=== PATIENT | male | born 1990 ===

== ENCOUNTER 2018-03-11 10:50 | Emergency (ER) | payer SELFPAY ==
[2018-03-11 11:00] VITALS: BMI 41.4
--- NOTE | 2018-03-11 11:22 | ED PDOC ---
HPI: Psych/Substance Abuse Time Seen by Provider: 03/11/18 11:11 History Per: Patient Onset/Duration Of Symptoms: Unknown Suicide/Self Injury Attempted (Context): None Modifying Factor(s): None Additional Complaint(s): Referred from [facility] for eval due to noncompliance with meds. Has been depressed but denies SI/HI. Has also been noncompliant with DM and antihypertensive meds. Past Medical History Vital Signs: Last Vital Signs Temp 98.3 F 03/11/18 11:01 Pulse 104 H 03/11/18 11:01 Resp 20 03/11/18 11:01 BP 127/86 03/11/18 11:01 Pulse Ox 96 03/11/18 11:01 - Medical History PMH: Anxiety, Diabetes, HTN Denies: Hepatitis, HIV, Chronic Kidney Disease, Seizures, Sexually Transmitted Disease - Family History Family History: States: Unknown Family Hx - Immunization History Hx Tetanus Toxoid Vaccination: No Hx Influenza Vaccination: Yes Hx Pneumococcal Vaccination: No - Home Medications Home Medications: Ambulatory Orders Medication Instructions Recorded Benztropine [Cogentin] 1 mg PO BID #30 tab 09/30/15 Gabapentin [Neurontin] 300 mg PO TID #30 cap 09/30/15 Haloperidol [Haldol] 10 mg PO BID #30 tab 09/30/15 [place] Carbonate [[place] 600 mg PO BID #30 cap 09/30/15 Carbonate 300MG] Sertraline [Zoloft] 50 mg PO DAILY #30 tab 09/30/15 traZODone [Desyrel] 100 mg PO HS #30 tab 09/30/15 - Allergies Allergies/Adverse Reactions: Allergies Allergy/AdvReac Type Severity Reaction Status Date / Time No Known Allergies Allergy Verified 03/11/18 11:19 Review of Systems ROS Statement: Except As Marked, All Systems Reviewed And Found Negative Psych: Positive for: Depression. Negative for: Suicidal ideation Physical Exam - Reviewed Nursing Documentation Reviewed: Yes Vital Signs Reviewed: Yes - Physical Exam Appears: Positive for: Well, Non-toxic, No Acute Distress Head Exam: Positive for: ATRAUMATIC, NORMAL INSPECTION, NORMOCEPHALIC Skin: Positive for: Normal Color, Warm, DRY Eye Exam: Positive for: EOMI, Normal appearance, PERRL ENT: Positive for: Normal ENT Inspection Neck: Positive for: Normal, Painless ROM Cardiovascular/Chest: Positive for: Regular Rate, Rhythm Respiratory: Positive for: CNT, Normal Breath Sounds Gastrointestinal/Abdominal: Positive for: Normal Exam, Soft Back: Positive for: Normal Inspection Extremity: Positive for: Normal ROM Neurologic/Psych: Positive for: Alert, Oriented - Laboratory Results Result Diagrams: 03/11/18 11:52 03/11/18 11:52 - ECG O2 Sat by Pulse Oximetry: 96 Medical Decision Making Medical Decision Making: Wishes to go home. Repeat accucheck 223. Denies SI/HI and does not wish to be seen by crisis. Disposition - Clinical Impression Clinical Impression: Diabetes - Patient ED Disposition Is Patient to be Admitted: No Counseled Patient/Family Regarding: Studies Performed, Diagnosis, Need For Followup, Rx Given - Disposition Referrals: [facility] [place] [Outside] Disposition: Routine/Home Disposition Time: 14:36 Condition: FAIR Instructions: Type 2 Diabetes
[2018-03-11 11:59] LABS: BASO # 0.1 K/uL (0.0-0.2); BASO % 0.9 % (0.0-2.0); EOS # 0.2 K/uL (0.0-0.7); EOS % 1.2 % (0.0-4.0); HEMOGLOBIN 14.9 g/dL (12.0-18.0); LYMPH % 20.5 % (20.0-40.0); MEAN CELL VOLUME 88.9 fl (80.0-94.0); MEAN CORPUSCULAR HEMOGLOBIN 30.3 pg (27.0-31.0); MEAN CORPUSCULAR HGB CONC 34.1 g/dL (33.0-37.0); MEAN PLATELET VOLUME 8.1 fl (7.2-11.7); MONO # 1.4 K/uL (0.0-0.8); MONO % 9.4 % (0.0-10.0); NEUT # 9.9 K/uL (1.8-7.0); NRBC % 0.1 % (0.0-0.0); RBC 4.92 Mil/uL (4.40-5.90); RED CELL DISTRIBUTION WIDTH 13.7 % (11.5-14.5); WHITE BLOOD COUNT 14.5 K/uL (4.8-10.8)
[2018-03-11] MEDS ORDERED: Insulin Regular 100 units/ml SC STA (12:03)
[2018-03-11 12:08] LABS: BARBITURATES, UR NEGATIVE (NEGATIVE); BENZODIAZEPINES, UR NEGATIVE (NEGATIVE); OPIATES, UR NEGATIVE (NEGATIVE); PHENCYCLIDINE, UR NEGATIVE (NEGATIVE)
[2018-03-11 12:19] LABS: ALB/GLOB RATIO 1.1 (1.0-2.1); ALBUMIN 4.3 g/dL (3.5-5.0); ALT/SGPT 61 U/L (21-72); AST/SGOT 54 U/L (17-59); BLOOD UREA NITROGEN 6 mg/dl (9-20); CALCIUM 9.6 mg/dL (8.4-10.2); GFR AFRICAN-AMERICAN > 60; GFR NON-AFRICAN AMERICAN > 60
[2018-03-11] MEDS ORDERED: Sodium Chloride 0.9% 1,000 ML IV STA (12:23)
[2018-03-11 13:05] VITALS: RESP 16
[2018-03-11] MEDS ORDERED: Insulin Regular 100 units/ml ONE (13:08)
--- NOTE | 2018-03-11 13:23 | RAD ---
Date of service: 03/11/2018 HISTORY: DM COMPARISON: 03/01/2016 TECHNIQUE: Chest PA and lateral FINDINGS: LUNGS: No active pulmonary disease. PLEURA: No significant pleural effusion identified. No pneumothorax apparent. CARDIOVASCULAR: Normal. OSSEOUS STRUCTURES: No significant abnormalities. VISUALIZED UPPER ABDOMEN: Normal. OTHER FINDINGS: None. IMPRESSION: No active disease. No significant interval change compared to the prior examination(s).
[2018-03-11 14:15] VITALS: BP 136/82; PULSE 87; TEMP 98.7
[2018-03-11 14:36] VITALS: O2SAT 96
== END 2018-03-11 14:48 | disposition home or self-care (01) ==
LOC: H.ER 10:50
DX: E11.9 Type 2 diabetes mellitus without complications (principal); Z91.19 Patient's noncompliance with other medical treatment and regimen; Z91.14 Patient's other noncompliance with medication regimen; F32.9 Major depressive disorder, single episode, unspecified; F41.9 Anxiety disorder, unspecified; I10 Essential (primary) hypertension
CPT/HCPCS: 71046; 80053; 80320; 80324; 80345; 80346; 80349; 80353; 80358; 80361; 82948; 83992; 85025; 96372; 99282; J7030

== ENCOUNTER 2018-07-09 16:00 | Inpatient (IN) | payer MEDICAID, OTHER ==
[2018-07-09 16:00] VITALS: BMI 41.4
--- NOTE | 2018-07-09 16:55 | ED PDOC ---
HPI: Psych/Substance Abuse Time Seen by Provider: 07/09/18 16:41 Chief Complaint (Nursing): Psychiatric Evaluation Chief Complaint (Provider): Suicidal ideation Additional Complaint(s): Pt sent from [facility] for suicidal ideation. Pt has been noncompliant with Gabapentin and [place] X 20 days. Denies homicidal ideation. Past Medical History Reviewed: Nursing Documentation, Vital Signs Vital Signs: Last Vital Signs Temp 97.7 F 07/09/18 16:02 Pulse 96 H 07/09/18 16:02 Resp 20 07/09/18 16:02 BP 131/61 07/09/18 16:02 Pulse Ox 98 07/09/18 16:02 - Medical History PMH: Anxiety, Diabetes, HTN, Schizophrenia Denies: Hepatitis, HIV, Chronic Kidney Disease, Seizures, Sexually Transmitted Disease - Family History Family History: States: Unknown Family Hx - Social History Current smoker - smoking cessation education provided: No Alcohol: None Drugs: Denies - Immunization History Hx Tetanus Toxoid Vaccination: No Hx Influenza Vaccination: Yes Hx Pneumococcal Vaccination: No - Home Medications Home Medications: Ambulatory Orders Medication Instructions Recorded Atorvastatin [Lipitor] 20 mg PO HS #30 tab 07/14/18 Gabapentin [Neurontin] 100 mg PO TID #90 cap 07/14/18 MetFORMIN [glucoPHAGE] 1,000 mg PO BIDWM #60 tab 07/14/18 Sertraline [Zoloft] 50 mg PO DAILY #30 tab 07/14/18 risperiDONE [RisperDAL Tab] 1 mg PO HS #30 tab 07/14/18 traZODone [Desyrel] 100 mg PO HS #30 tab 07/14/18 - Allergies Allergies/Adverse Reactions: Allergies Allergy/AdvReac Type Severity Reaction Status Date / Time No Known Allergies Allergy Verified 07/09/18 16:01 Review of Systems Psych: Positive for: Suicidal ideation. 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 Negative for: Motor/Sensory Deficits - Laboratory Results Result Diagrams: 07/09/18 19:30 07/09/18 19:30 - ECG O2 Sat by Pulse Oximetry: 98 Medical Decision Making Medical Decision Makin yo male with suicidal ideation. - Crisis evaluation Disposition - Clinical Impression Clinical Impression: Schizoaffective disorder - Disposition Disposition: Transfer of Care Disposition Time: 20:00 Condition: STABLE Patient Signed Over To: Shade Lira
[2018-07-09 19:53] LABS: URINE BILIRUBIN NEGATIVE (NEGATIVE); URINE BLOOD NEGATIVE (NEGATIVE); URINE CLARITY CLEAR (Clear); URINE COLOR STRAW (YELLOW); URINE GLUCOSE (UA) >=500 mg/dL (Normal); URINE LEUKOCYTE ESTERASE NEG Leu/uL (Negative); URINE PROTEIN NEGATIVE (NEGATIVE); URINE UROBILINOGEN 0.2-1.0 mg/dL (0.2-1.0)
[2018-07-09 19:55] LABS: BASO # 0.1 K/uL (0.0-0.2); EOS # 0.1 K/uL (0.0-0.7); EOS % 0.8 % (0.0-4.0); HEMOGLOBIN 14.6 g/dL (12.0-18.0); LYMPH # 3.2 K/uL (1.0-4.3); LYMPH % 23.8 % (20.0-40.0); MEAN CELL VOLUME 87.9 fl (80.0-94.0); MEAN CORPUSCULAR HEMOGLOBIN 28.9 pg (27.0-31.0); MEAN CORPUSCULAR HGB CONC 32.9 g/dL (33.0-37.0); MEAN PLATELET VOLUME 7.5 fl (7.2-11.7); MONO # 1.2 K/uL (0.0-0.8); MONO % 8.6 % (0.0-10.0); NEUT # 8.8 K/uL (1.8-7.0); NEUT % 65.8 % (50.0-75.0); NRBC % 0.1 % (0.0-0.0); RBC 5.06 Mil/uL (4.40-5.90); RED CELL DISTRIBUTION WIDTH 13.2 % (11.5-14.5); WHITE BLOOD COUNT 13.4 K/uL (4.8-10.8)
[2018-07-09 20:06] LABS: ALB/GLOB RATIO 1.2 (1.0-2.1); ALBUMIN 4.4 g/dL (3.5-5.0); ALT/SGPT 60 U/L (21-72); AST/SGOT 34 U/L (17-59); BLOOD UREA NITROGEN 13 mg/dl (9-20); CALCIUM 9.7 mg/dL (8.4-10.2); GFR NON-AFRICAN AMERICAN > 60
[2018-07-09 20:07] LABS: ACETAMINOPHEN < 10.0 ug/ml (10.0-30.0); BARBITURATES, UR NEGATIVE (NEGATIVE); BENZODIAZEPINES, UR NEGATIVE (NEGATIVE); OPIATES, UR NEGATIVE (NEGATIVE); PHENCYCLIDINE, UR NEGATIVE (NEGATIVE); SALICYLATE < 1.0 mg/dl
[2018-07-09] MEDS ORDERED: DiphenhydrAMINE 50 mg/ml Inj IM PRN (22:18)
[2018-07-09] MEDS ORDERED: Magnesium Hydroxide Susp 30 ml UD PO PRN (22:18)
[2018-07-09] MEDS ORDERED: Alum-Mag Hydrox-Simethicone Susp (30 mL) PO PRN (22:18)
--- NOTE | 2018-07-09 22:25 | PCM.BM ---
<Amy Ceja - Last Filed: 07/09/18 22:23> Treatment Plan Problems - Problems identified on initial assessmt Medication nonadherence Date Initiated: 07/09/18 Time Initiated: 22:24 Assessment reference: NA Status: Active Self care deficit Date Initiated: 07/09/18 Time Initiated: 22:24 Assessment reference: NA Status: Active Auditory Hallucination Date Initiated: 07/09/18 Time Initiated: 22:25 Assessment reference: NA Status: Active Ineffective family coping Date Initiated: 07/09/18 Time Initiated: 22:25 Assessment reference: NA Status: Active Treatment assets and liabiliti Patient Assests: cooperative, resourceful, ADL independent, negotiates basic needs Patient Liabilities: substance abuse, medical problems - Milieu Protocol Maintain good personal hygiene: every shift Encourage regular showers, every shift Remind patient to perform daily oral care, every shift Assist patient to perform ADL's Conduct patient checks and document Observation sheet: Q15 minutes Maintain personal safety: every shift Educate patient to report safety concerns to staff, every shift Monitor environment for contraband/sharps Medication safety: Monitor for expected outcome, potential side effects: every shift, Assess barriers to learning: every shift, Assess readiness for medication education: every shift <Misael Esquivel - Last Filed: 07/13/18 18:28> Family Contact Family involvement: Famliy/SO not involved Family contact: Patient declines to allow family contact at present Family contact name: Pt refused. - Goals for Treatment Patient goals for treatment: Pt offered no goals for treatment and denied all acute psych complaints. Pt is currently comnnected to [facility]. Discharge/Continuing Care - Education Needs Education Needs: Patient Medication, Patient Diagnosis/Disease Process, Patient Coping Skills, Patient Community resources, Patient Aftercare Safety Plan - Discharge Discharge Criteria: Tolerates medication w/o severe side effects, Free of Suicidal thoughts, Free of agitation, Normal sleep pattern, Ability to care for self, Reduction of target symptoms Discharge to:: Home, With Family - Treatment Team Participation Patient/Family/SO Statement: 07/13/18 18:27 Pt seen in treatment team on 07/11/18. Pt denied all acute psychiatric complaints. Pt denied SI/HI and AVT hallucinations. Discussed with Family/SO: No Was Patient/Family/SO present at Treatment Team Meeting: Yes
--- NOTE | 2018-07-10 04:44 | ED PDOC ---
- Laboratory Results Result Diagrams: 07/09/18 19:30 07/09/18 19:30 - ECG O2 Sat by Pulse Oximetry: 100 Medical Decision Making Medical Decision MakinPM Patient endorsed to me by Dr. Rogers pending labs and xray, patient to be admitted to [facility] 9PM Patient has mild leukocytosis without signs of infection. CXR is unchanged from 2016. Non-emergent CT can be obtained as outpatient given no symptoms. Cleared medically for admission. Disposition - Clinical Impression Clinical Impression: Schizoaffective disorder - POA Present On Arrival: None - Disposition Disposition: Admitted as In-Patient Disposition Time: 21:00 Condition: FAIR
[2018-07-10] MEDS ORDERED: Influenza Vaccine (5 YR UP)/PF 60 MCG/0.5 ML SYR IM ONE (06:13)
[2018-07-10 07:36] LABS: T4 7.06 ug/dl (5.5-11.0)
--- NOTE | 2018-07-10 09:32 | CARD ---
APPROVED REPORT Date of service: 07/09/2018 EKG Measurement Heart [id number] <Conclusion> Normal sinus rhythm Minimal voltage criteria for LVH, may be normal variant Borderline ECG
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
--- NOTE | 2018-07-10 12:27 | RAD ---
Date of service: 07/09/2018 HISTORY: Medical clearance COMPARISON: 03/11/2018 FINDINGS: LUNGS: No active pulmonary disease. PLEURA: No significant pleural effusion identified, no pneumothorax apparent. CARDIOVASCULAR: No atherosclerotic calcification present No radiographic findings to suggest acute or significant cardiovascular disease. OSSEOUS STRUCTURES: No significant abnormalities. VISUALIZED UPPER ABDOMEN: Normal. OTHER FINDINGS: None. IMPRESSION: No active disease. No significant interval change compared to the prior examination(s). Concordant results with the preliminary interpretation rendered by the emergency department physician procedure.
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
[2018-07-10] MEDS: Insulin Lispro (humaLOG) 100 Units/ml Inj SC SCH (23:31)
[2018-07-11] MEDS: Insulin Lispro (humaLOG) 100 Units/ml Inj SC SCH ×4 (08:13→21:08)
--- NOTE | 2018-07-11 14:20 | PCM.PYCHPN ---
Psychiatric Progress Note - Psychiatric Progress Note Patient seen today, length of contact: PT EVALUATED DISCUSSED WITH TEAM CHART REVIEWED Patient Chief Complaint: I did not have my medicine and I was depressed Problems Identified/Issues Discussed: pt evaluated with treatment team, continues to present with depressed mood and affect, pt reported being non compliant with medication prior to admission also reported relapse on cocaine, motivational therapy provided in reference to the effect of cocaine on current mental status discussed gradual increase in the dose of zoloft, no reported side effects, encouraged pt to attend groups, pt denied any current suicidal or homicidal ideation denied perceptual disturbances Medical Problems: pt has hx of two hospitalizations, hx of non compliance with treatment DSM 5 Symptoms Update: major depression cocaine induced psychosis cocaine abuse Medication Change: No Medical Record Reviewed: Yes Mental Status Examination - Cognitive Function Orientation: Person, Place, Situation Memory: Intact Attention: WNL Concentration: Poor Association: WNL Fund of Knowledge: Poor Decription of patient's judgement and insights: poor insight and judgment - Mood Mood: Depressed, Anxious - Affect Affect: Constricted, Depressed - Speech Speech: Soft - Formal Thought Process Formal Thought Process: Hallucinations, Circumstantial - Suicidal Ideation Suicidal Ideation: No - Homicidal Ideation Homicidal Ideation: No Goal/Treatment Plan - Goal/Treatment Plan Need for Continued Stay: Severe depression anxiety, Discharge may exacerbated symptoms Progress Toward Problem(s) and Goals/Treatment Plan: zoloft 50mg daily risperidone 1mg qhs internal medicine consult motivational, group and supportyive therapy
[2018-07-12] MEDS: Insulin Lispro (humaLOG) 100 Units/ml Inj SC SCH ×4 (09:52→21:17)
--- NOTE | 2018-07-12 09:58 | PCM.PYCHPN ---
Psychiatric Progress Note - Psychiatric Progress Note Patient seen today, length of contact: Pt evaluated, case discussed w/ team, chart reviewed Patient Chief Complaint: Depression Problems Identified/Issues Discussed: Patient continues to report feeling depressed w/ intermittent feelings of hopelessness. NO AH/VH/SI/HI. No active ideation to harm self. No adverse effects to medications reported. He reports difficulty sleeping at night. Medication Change: No Medical Record Reviewed: Yes Consults ordered or reviewed: Medicine consult Mental Status Examination - Cognitive Function Orientation: Person, Place, Situation, Time Memory: Intact Attention: WNL Concentration: WNL Association: WNL Fund of Knowledge: [facility] Decription of patient's judgement and insights: Poor I/J - Mood Mood: Depressed, Anxious - Affect Affect: Constricted, Depressed - Speech Speech: Appropriate - Formal Thought Process Formal Thought Process: No Impairment Psychotic Thoughts and Behaviors: Denies acute AH/VH/paranoia - Suicidal Ideation Suicidal Ideation: No - Homicidal Ideation Homicidal Ideation: No Goal/Treatment Plan - Goal/Treatment Plan Need for Continued Stay: Severe depression anxiety, Discharge may exacerbated symptoms Progress Toward Problem(s) and Goals/Treatment Plan: Major Depressive Disorder; Cocaine Induced Psychosis; Cocaine Use Disorder -Continue current medications -Individual and group therapy -Psychoeducation -Disposition planning
[2018-07-13] MEDS: Insulin Lispro (humaLOG) 100 Units/ml Inj SC SCH ×4 (08:58→21:30)
--- NOTE | 2018-07-13 10:17 | PCM.PYCHPN ---
Psychiatric Progress Note - Psychiatric Progress Note Patient seen today, length of contact: Pt evaluated, case discussed w/ team, chart reviewed Patient Chief Complaint: Depression Problems Identified/Issues Discussed: Patient reports that his mood is improving. He feels less depressed. No active ideation to harm self. No adverse effects to medications reported. Medication Change: No Medical Record Reviewed: Yes Consults ordered or reviewed: Medicine consult Mental Status Examination - Cognitive Function Orientation: Person, Place, Situation, Time Memory: Intact Attention: WNL Concentration: WNL Association: WNL Fund of Knowledge: WN Decription of patient's judgement and insights: Improving I/J - Mood Mood: Depressed - Affect Affect: Constricted - Speech Speech: Appropriate - Formal Thought Process Formal Thought Process: No Impairment Psychotic Thoughts and Behaviors: Denies acute AH/VH/paranoia - Suicidal Ideation Suicidal Ideation: No - Homicidal Ideation Homicidal Ideation: No Goal/Treatment Plan - Goal/Treatment Plan Need for Continued Stay: Severe depression anxiety, Discharge may exacerbated symptoms Progress Toward Problem(s) and Goals/Treatment Plan: Major Depressive Disorder; Cocaine Induced Psychosis; Cocaine Use Disorder -Continue current medications -Individual and group therapy -Psychoeducation -Disposition planning
[2018-07-14] MEDS: Insulin Lispro (humaLOG) 100 Units/ml Inj SC SCH ×2 (09:22→11:41)
--- NOTE | 2018-07-14 09:50 | PCM.PYCHDC ---
Mental Status Examination - Mental Status Examination Orientation: Person, Place, Situation, Time Memory: Intact Mood: Neutral Affect: Broad Speech: Appropriate Attention: WNL Concentration: WNL Association: WNL Fund of Knowledge: WNL Formal Thought Process: No Impairment Description of patient's judgement and insight: Fair I/J Psychotic Thoughts and Behaviors: Denies acute AH/VH/paranoia Suicidal Ideation: No Current Homicidal Ideation?: No Discharge Summary - Discharge Note Reason for Hospitalization: As per initial HPI: pt is 27 ys old male with previous psychiatric diagnosis of schizoafeective disorder, cocaine and alcohol abuse, presented to ER with suicidal ideations, pt has not been compliant with medications or follow up started to feel increaingly depressed, also relapsed on cocaine , last use two weeks ago, pt started having command hallucinations to kill himself on the unit pt reported low energy low motivation, passive suicidal ideation without active plan on the unit denied current command hallucinations Laboratory Data: Abnormal Lab Results 07/13/18 07/13/18 07/13/18 12:21 16:41 21:22 POC Glucose (mg/dL) 158 H 233 H 228 H 07/14/18 06:55 POC Glucose (mg/dL) 175 H Consultations:: List each consultation separately and include: 1. Reason for request. 2. Findings. 3. Follow-up Consultations: Medicine consult Summary of Hospital Course include:: 1. Description of specific treatment plan utilized for patients during their course of treatmen. 2. Summarize the time- course for resolution of acute symptoms and/or regressed behaviors. 3. Describe issues identified and worked on during hospitalization. 4. Describe medication utilized. 5. Describe medical problems identified and treated. 6. Reassessment of suicide risk Summary of Hospital Course: Patient was admitted to the psychiatry unit. Individual and group therapy were provided. Patient was stabilized on Risperdal 1 mg PO HS, Zoloft 50 mg PO Daily and Trazodone 100 mg PO HS. He requested to be discharged from the hospital because his mood has improved, he no longer feels he needs acute inpatient hospitalization and he would like to attend his [facility] appointment. Psychoeducation provided on the dangers of substance abuse and compliance with treatment and medications. He denies depression/anxiety/AH/VH/paranoia/delusions/SI/HI. - Final Diagnosis (DSM 5) Condition upon Discharge: FAIR DSM 5: Schizoaffective Disorder vs Substance Induced Mood and Psychotic Disorder; Cocaine Use Disorder Disposition: HOME/ ROUTINE Follow-up Treatment Plan: Schizoaffective Disorder vs Substance Induced Mood and Psychotic Disorder; Cocaine Use Disorder Discharge with outpatient follow-up today at [facility] Prescriptions/Medication Reconciliation: Atorvastatin [Lipitor] 20 mg PO HS #30 tab Gabapentin [Neurontin] 100 mg PO TID #90 cap MetFORMIN [glucoPHAGE] 1,000 mg PO BIDWM #60 tab risperiDONE [RisperDAL Tab] 1 mg PO HS #30 tab Sertraline [Zoloft] 50 mg PO DAILY #30 tab traZODone [Desyrel] 100 mg PO HS #30 tab - Smoking Cessation Smoking Cessation Medication prescribed: No Reason for not providing: Not indicated - Antipsychotic Medications Pt discharged on 2 or more routine antipsychotic medications: No
[2018-07-14 10:09] VITALS: BP 130/79; PULSE 74; RESP 20; TEMP 97
[2018-07-14 16:01] VITALS: O2SAT 98
== END 2018-07-14 12:55 | disposition home or self-care (01) | DRG 750 ==
LOC: H.ER 16:00 → H.ERHOLD 19:59 → H.PSYCH 22:12
PROVIDERS: ADMIT Psychiatry & Neurology Psychiatry; ATTEND Psychiatry & Neurology Psychiatry
PROC: GZHZZZZ Group Psychotherapy (ICD-10-PCS; principal; 2018-07-09)
PROC: HZ57ZZZ Individual Psychotherapy for Substance Abuse Treatment, Motivational Enhancement (ICD-10-PCS; 2018-07-09)
PROC: HZ56ZZZ Individual Psychotherapy for Substance Abuse Treatment, Psychoeducation (ICD-10-PCS; 2018-07-09)
PROC: HZ59ZZZ Individual Psychotherapy for Substance Abuse Treatment, Supportive (ICD-10-PCS; 2018-07-09)
PROC: 3E02340 Introduction of Influenza Vaccine into Muscle, Percutaneous Approach (ICD-10-PCS; 2018-07-10)
DX: F25.9 Schizoaffective disorder, unspecified (principal); R45.851 Suicidal ideations; E11.9 Type 2 diabetes mellitus without complications; Z91.14 Patient's other noncompliance with medication regimen; F14.94 Cocaine use, unspecified with cocaine-induced mood disorder; Z23 Encounter for immunization; Z91.19 Patient's noncompliance with other medical treatment and regimen; I10 Essential (primary) hypertension; F17.210 Nicotine dependence, cigarettes, uncomplicated

== ENCOUNTER 2018-08-06 12:35 | Emergency (ER) | payer OTHER, SELFPAY ==
[2018-08-06 12:36] VITALS: BMI 41.4
[2018-08-06 13:02] VITALS: BP 121/78; PULSE 90; RESP 18; TEMP 97.9; O2SAT 94
--- NOTE | 2018-08-06 13:29 | ED PDOC ---
HPI: General Adult Time Seen by Provider: 08/06/18 13:08 Chief Complaint (Nursing): Med Refill Chief Complaint (Provider): Medication refill History Per: Patient History/Exam Limitations: no limitations Additional History Per: Patient Additional Complaint(s): 27yo male, with history of schizoaffective disorder, comes to ER requesting refills of his psychiatric medications. Patient states his follow up appointment with his psychiatrist has been delayed and so, he will run out of his medications prior to the visit. Patient states he was directed to the ER by the clinic for medication refills. Otherwise, patient denies any medical complaints, suicidal ideation, homicidal ideation, audio or visual hallucinations. He has no medical complaints. Psychiatrist: Yeny Jones Past Medical History Reviewed: Historical Data, Nursing Documentation, Vital Signs Vital Signs: Last Vital Signs Temp 97.9 F 08/06/18 12:59 Pulse 90 08/06/18 12:59 Resp 18 08/06/18 12:59 BP 121/78 08/06/18 12:59 Pulse Ox 94 L 08/06/18 12:59 - Medical History PMH: Anxiety, Bipolar Disorder, Diabetes, HTN Denies: Hepatitis, HIV, Chronic Kidney Disease, Seizures, Sexually Transmitted Disease Other PMH: schizoaffective disorder - Family History Family History: States: Unknown Family Hx - Immunization History Hx Tetanus Toxoid Vaccination: No Hx Influenza Vaccination: Yes Hx Pneumococcal Vaccination: No - Home Medications Home Medications: Ambulatory Orders Medication Instructions Recorded RX: Atorvastatin [Lipitor] 20 mg PO HS #30 tab 07/14/18 RX: Gabapentin [Neurontin] 100 mg PO TID #90 cap 07/14/18 RX: MetFORMIN [glucoPHAGE] 1,000 mg PO BIDWM #60 tab 07/14/18 RX: Sertraline [Zoloft] 50 mg PO DAILY #30 tab 07/14/18 RX: risperiDONE [RisperDAL Tab] 1 mg PO HS #30 tab 07/14/18 RX: traZODone [Desyrel] 100 mg PO HS #30 tab 07/14/18 - Allergies Allergies/Adverse Reactions: Allergies Allergy/AdvReac Type Severity Reaction Status Date / Time No Known Allergies Allergy Verified 07/09/18 16:01 Review of Systems ROS Statement: Except As Marked, All Systems Reviewed And Found Negative Physical Exam - Reviewed Nursing Documentation Reviewed: Yes Vital Signs Reviewed: Yes - Physical Exam Appears: Positive for: Non-toxic, No Acute Distress Skin: Positive for: Normal Color Eye Exam: Positive for: Normal appearance Neurologic/Psych: Positive for: Alert, Oriented, Mood/Affect (calm, cooperative). Negative for: Motor/Sensory Deficits - ECG O2 Sat by Pulse Oximetry: 94 (RA) Medical Decision Making Medical Decision Making: Impression: 27yo male with history of schizo-affective disorder requesting medication refill Practitioner spoke with Dr. Cleary's office regarding patient's medication refill and was informed the office will alert Dr. Cleary to give the patient a call back; they ensure the patient will have refills for his psychiatric medication prior to his appointment. Patient was informed of the conversation outcome, expresses understanding and is agreeable. Patient informed that in the interim, if he experiences any psychiatric or medical symptoms, to return to the ER immediately. Patient stable for discharge home. Scribe Attestation: Documented by Karen Clay acting as a scribe for TETE White Provider Attestation: All medical record entries made by the Scribe were at my direction and personally dictated by me. I have reviewed the chart and agree that the record accurately reflects my personal performance of the history, physical exam, m edical decision making, and the department course for this patient. I have also personally directed, reviewed, and agree with the discharge instructions and disposition. Disposition - Clinical Impression Clinical Impression: Schizoaffective disorder - Patient ED Disposition Is Patient to be Admitted: No - Disposition Referrals: Yeny Jones MD [Medical Doctor] - Disposition: Routine/Home Disposition Time: 13:37 Condition: STABLE Additional Instructions: F/u with Dr. Cleary's office re: refills for your medications. The office stated that they will take care of your refills. Return to ER if you are run out of your medications and are unable to get refills from your psychiatrist. Continue your current medications as prescribed. Have your psychiatrist fill out papers for court. Forms: [employer] ([employer]itan) Print Language: ROMANIAN
== END 2018-08-06 13:20 | disposition home or self-care (01) ==
LOC: H.ER 12:35
DX: Z76.0 Encounter for issue of repeat prescription (principal)

== ENCOUNTER 2018-10-21 13:19 | Inpatient (IN) | payer MEDICAID, SELFPAY ==
[2018-10-21 13:20] VITALS: BMI 41.4
--- NOTE | 2018-10-21 15:12 | ED PDOC ---
HPI: Psych/Substance Abuse Time Seen by Provider: 10/21/18 13:40 Chief Complaint (Nursing): Psychiatric Evaluation Chief Complaint (Provider): Psychiatric Evaluation History Per: Patient History/Exam Limitations: no limitations Onset/Duration Of Symptoms: Other (today) Current Symptoms Are (Timing): Still Present Additional Complaint(s): 27 year old male with pmhx of schizoaffective disorder presents to the ED for evaluation of feeling depressed today. Patient reports that he also has a history of depression, but upon waking up this morning felt more depressed than usual with some thought of killing himself, but no plan. Currently, patient denies suicidal ideation, homicidal ideation, auditory / visual hallucinations, and drug / alcohol use. He additionally states that he has been having an intermittent mild headache, currently symptomatic, but did not taken any medications for it. Also denies visual changes, photophobia, and gait / speech disturbances. PMD: none provided Past Medical History Reviewed: Historical Data, Nursing Documentation, Vital Signs Vital Signs: Last Vital Signs Temp 97.8 F 10/21/18 13:23 Pulse 100 H 10/21/18 13:23 Resp 16 10/21/18 13:23 BP 150/97 H 10/21/18 13:23 Pulse Ox 96 10/21/18 13:23 - Medical History PMH: Anxiety, Bipolar Disorder, Depression, Diabetes, HTN, Schizophrenia Denies: Hepatitis, HIV, Chronic Kidney Disease, Seizures, Sexually Transmitted Disease - Surgical History Surgical History: No Surg Hx - Family History Family History: States: Unknown Family Hx - Social History Alcohol: None Drugs: Denies - Immunization History Hx Tetanus Toxoid Vaccination: No Hx Influenza Vaccination: Yes Hx Pneumococcal Vaccination: No - Home Medications Home Medications: Ambulatory Orders Medication Instructions Recorded Sertraline [Zoloft] 50 mg PO DAILY #30 tab 07/14/18 traZODone [Desyrel] 100 mg PO HS #30 tab 07/14/18 Gabapentin [Neurontin] 300 mg PO TID 10/21/18 Risperidone [Risperdal] 0.5 mg PO HS 10/21/18 - Allergies Allergies/Adverse Reactions: Allergies Allergy/AdvReac Type Severity Reaction Status Date / Time No Known Allergies Allergy Verified 10/21/18 13:22 Review of Systems ROS Statement: Except As Marked, All Systems Reviewed And Found Negative Eyes: Negative for: Vision Change, Other (photophobia) Neurological: Positive for: Headache. Negative for: Other (speech / gait disturbances) Psych: Positive for: Depression. Negative for: Suicidal ideation (or plan), Other (homicidal ideation, visual / auditory hallucinations) Physical Exam - Reviewed Nursing Documentation Reviewed: Yes Vital Signs Reviewed: Yes - Physical Exam Appears: Positive for: No Acute Distress Cardiovascular/Chest: Positive for: Regular Rate, Rhythm Respiratory: Positive for: Normal Breath Sounds. Negative for: Respiratory Dis tress Neurologic/Psych: Positive for: Alert, manager environmental health and safety II-XII (grossly intact, no tongue deviation), Oriented (x3), Other (coherent speech, non-pressured, with no flight of ideas). Negative for: Facial Droop (pt has symmetrical smile) - Laboratory Results Result Diagrams: 10/21/18 17:14 10/21/18 17:14 - ECG ECG: Positive for: Interpreted By Me, Viewed By Me ECG Rhythm: Positive for: Normal ST Segment, Sinus Rhythm (normal at 78bpm). Negative for: ST/T Changes, Nonspecific Changes O2 Sat by Pulse Oximetry: 96 (RA) Pulse Ox Interpretation: Normal Medical Decision Making Medical Decision Making: Time: 1345 Initial Impression: psychiatric evaluation Initial Plan: --Crisis evaluation 1616 Patient seen by feeder worker power unit operator and is to be admitted for depression as per Dr. Solis. Additional orders: --CBC --BMP --UA --Urine drug screen --Alcohol serum --EKG --CXR EKG: NSR, HR 78, normal EKG. 1841 CXR FINDINGS: LINES AND TUBES: None. LUNG AND PLEURA: The lungs are well inflated and clear. No pleural effusion or pneumothorax. HEART AND MEDIASTINUM: The heart is not enlarged. No aortic atherosclerotic calcifications present. The hilar and mediastinal contours are within normal limits. SKELETAL STRUCTURES: The bony structures are within normal limits for the patient's age. VISUALIZED UPPER ABDOMEN: Normal. OTHER FINDINGS: None. IMPRESSION: No active pulmonary disease. 2002 Patient is medically stable for psychiatric admission. Scribe Attestation: Documented by Tammie Ford, acting as a scribe for Letitia Saldivar PA-C. Provider Scribe Attestation: All medical record entries made by the Scribe were at my direction and personally dictated by me. I have reviewed the chart and agree that the record accurately reflects my personal performance of the history, physical exam, medical decision making, and the department course for this patient. I have also personally directed, reviewed, and agree with the discharge instructions and disposition. Disposition - Clinical Impression Clinical Impression: Major depressive disorder - Patient ED Disposition Is Patient to be Admitted: Yes - Disposition Disposition: Transfer of Care Disposition Time: 20:04 Condition: STABLE
[2018-10-21 17:37] LABS: BASO # 0.1 K/uL (0.0-0.2); BASO % 0.6 % (0.0-2.0); EOS # 0.3 K/uL (0.0-0.7); HEMOGLOBIN 13.7 g/dL (12.0-18.0); LYMPH # 4.6 K/uL (1.0-4.3); LYMPH % 33.3 % (20.0-40.0); MEAN CORPUSCULAR HEMOGLOBIN 29.1 pg (27.0-31.0); MEAN CORPUSCULAR HGB CONC 33.1 g/dL (33.0-37.0); MEAN PLATELET VOLUME 7.1 fl (7.2-11.7); MONO # 1.3 K/uL (0.0-0.8); MONO % 9.6 % (0.0-10.0); NEUT # 7.6 K/uL (1.8-7.0); NEUT % 54.5 % (50.0-75.0); RBC 4.7 Mil/uL (4.40-5.90); RED CELL DISTRIBUTION WIDTH 14.2 % (11.5-14.5); WHITE BLOOD COUNT 13.9 K/uL (4.8-10.8)
[2018-10-21 18:01] LABS: BLOOD UREA NITROGEN 9 mg/dl (9-20); CALCIUM 9.6 mg/dL (8.4-10.2); GFR NON-AFRICAN AMERICAN > 60
[2018-10-21 18:05] LABS: BARBITURATES, UR NEGATIVE (NEGATIVE); BENZODIAZEPINES, UR NEGATIVE (NEGATIVE); OPIATES, UR NEGATIVE (NEGATIVE); PHENCYCLIDINE, UR NEGATIVE (NEGATIVE)
[2018-10-21 18:06] LABS: URINE BACTERIA RARE (<OCC); URINE BILIRUBIN NEGATIVE (NEGATIVE); URINE BLOOD SMALL (NEGATIVE); URINE CLARITY SLIGHTY-CLOUDY (Clear); URINE COLOR YELLOW (YELLOW); URINE GLUCOSE (UA) NEG (NEGATIVE); URINE LEUKOCYTE ESTERASE NEG Leu/uL (Negative); URINE PROTEIN NEGATIVE (NEGATIVE); URINE UROBILINOGEN 0.2-1.0 mg/dL (0.2-1.0)
--- NOTE | 2018-10-21 18:45 | RAD ---
Date of service: 10/21/2018 HISTORY: Cough and shortness of breath COMPARISON: 07/09/2018. TECHNIQUE: Chest PA and lateral FINDINGS: LINES AND TUBES: None. LUNG AND PLEURA: The lungs are well inflated and clear. No pleural effusion or pneumothorax. HEART AND MEDIASTINUM: The heart is not enlarged. No aortic atherosclerotic calcifications present. The hilar and mediastinal contours are within normal limits. SKELETAL STRUCTURES: The bony structures are within normal limits for the patient's age. VISUALIZED UPPER ABDOMEN: Normal. OTHER FINDINGS: None. IMPRESSION: No active pulmonary disease.
[2018-10-21 20:19] VITALS: O2SAT 96
[2018-10-21] MEDS ORDERED: Alum-Mag Hydrox-Simethicone Susp (30 mL) PO PRN (20:58)
[2018-10-21] MEDS ORDERED: DiphenhydrAMINE 50 mg/ml Inj IM PRN (20:58)
[2018-10-21] MEDS ORDERED: Magnesium Hydroxide Susp 30 ml UD PO PRN (20:58)
--- NOTE | 2018-10-21 21:44 | PCM.BM ---
<Radha Macias P - Last Filed: 10/21/18 21:42> Treatment Plan Problems - Problems identified on initial assessmt Altered Sleep Patterns Date Initiated: 10/21/18 Time Initiated: 21:42 Assessment reference: NA Status: Active Hopelessness/Helplessness Date Initiated: 10/21/18 Time Initiated: 21:42 Assessment reference: NA Status: Active Treatment assets and liabiliti Patient Assests: cooperative, resourceful, ADL independent, good support system, negotiates basic needs, cognitively intact Patient Liabilities: financial problems, medical problems, other <Misael Esquivel J - Last Filed: 10/24/18 17:33> Family Contact Family involvement: Family/SO is involved Family contact: Patient declines to allow family contact at present Family contact name: Pt refused. - Goals for Treatment Patient goals for treatment: Pt unable to formulate goals for treatment at this time, and has an unrealistic mindset when it comes to what can be accomplished when he leaves the hospital. Pt has remained sober for over a month in the community and he would like to continue with outpatient substance abuse treatment. Discharge/Continuing Care - Education Needs Education Needs: Patient Medication, Patient Diagnosis/Disease Process, Patient Coping Skills, Patient Community resources, Patient Aftercare Safety Plan - Discharge Discharge Criteria: Tolerates medication w/o severe side effects, Free of Suicidal thoughts, Free of agitation, Normal sleep pattern, Reduction of target symptoms Discharge to:: Home, With Family - Treatment Team Participation Patient/Family/SO Statement: 10/24/18 17:35 Pt seen in team on 10/22/18. Pt reported he was admitted due to "stuff with mom." Pt reported that he does not like his current substance abuse program, [facility]." Pt reported he has remained sober for 1.5 months. Pt reported he is still feeling "down." Pt denied current SI/HI and AVTG hallucinations. Pt is oriented X4. Discussed with Family/SO: No Was Patient/Family/SO present at Treatment Team Meeting: Yes <Ned Sylvester - Last Filed: 10/27/18 13:05> - Diagnosis (1) Major depressive disorder Status: Acute Interventions: start antidepressant medications, CBT and group therapy 10/27/18 13:04 (2) Alcohol abuse Status: Acute Interventions: motivational therapy 10/27/18 13:05
--- NOTE | 2018-10-22 12:36 | PCM.PSYCH ---
Initial Psychiatric Evaluation - Initial Psychiatric Evaluation Type of Admission: Voluntary Legal Status: Capacity Chief Complaint (in patient's own words): I cant cope any more History of Present Illness and Precipitating Events: pt is 27 ys old male with previous psychiatric diagnosis of schizoaffective disorder, alcohol and cocaine abuse, reportedly [facility] but unable to see psychiatrist because of lack of insurance pt has been feeling increasingly depressed due to financial difficulties, being unemployed and being unable to see his son who moved to [place] with his mother pt relapsed on alcohol using beer every day, he reported poor sleep decreased appetite, feeling hopeless and helpless and started having paranoid delusions and delusions of reference feeling that the people in the program are talking about him and targeting him on the unit pt continues to feel hopeless and helpless, passive suicidal ideation without a plan , denied command hallucinations, denied homicidal ideation COLLATERAL FROM PT'S MOTHER REVEALS THAT THE PT HAS BEEN GETTING INCREASINGLY DEPRESSED FOR THE LAST WEEK AND TODAY TOLD HIS MOTHER THAT HE COULD NOT TAKE IT ANYMORE AND JUST WANTED TO . PT'S MOTHER REPORTED THAT HE TOLD HER THAT NOTHING EVER SEEMS TO WORK OUT FOR HIM AND HE IS SO TIRED OF TRYING. SHE REPORTED THAT HE HAS NOT BEEN SLEEPING OR EATING WELL FOR THE PAST WEEK AND THAT HE HAS BEEN VERY SAD AND SHE IS WORRIED THAT HE HAS GIVEN UP ON LIFE. SHE REPORTED THAT SHE STRONGLY ENCOURGAED HIM TO COME TO THE HOSPITAL TO GET HELP. SHE REPORTED THAT HE HAS MANY STRESSORS AT THIS TIME AND THAT HE IS OVERWHELMED. Current Medications: Active Medications Generic Name Dose Route Start Last Admin Trade Name Freq PRN Reason Stop Dose Admin Acetaminophen 650 mg 10/21/18 20:58 10/22/18 08:50 Tylenol 325mg Tab PO 650 mg Q4 PRN Administration pain level 4-7 Al Hydrox/Mg Hydrox/Simethicone 30 ml 10/21/18 20:58 Maalox Plus 30 Ml PO Q4 PRN Dyspepsia Diphenhydramine HCl 50 mg 10/21/18 20:58 Benadryl IM Q6 PRN Extrapyramidal S/S Unable PO Diphenhydramine HCl 50 mg 10/21/18 20:58 Benadryl PO Q6 PRN Extrapyramidal Symptoms Diphenhydramine HCl 50 mg 10/21/18 20:59 10/21/18 21:34 Benadryl PO 50 mg HS PRN Administration Sleep Gabapentin 100 mg 10/22/18 13:00 Neurontin PO TID JOSE FRANCISCO Haloperidol 5 mg 10/21/18 20:58 Haldol PO Q4 PRN Agitation Haloperidol Lactate 5 mg 10/21/18 20:58 Haldol IM Q4 PRN Agitation, Unable to Take PO Lorazepam 2 mg 10/21/18 20:58 Ativan IM Q8H PRN Anxiety/Agitation,Unable PO Lorazepam 1 mg 10/21/18 20:58 Ativan PO Q8H PRN Anxiety/Agitation Magnesium Hydroxide 30 ml 10/21/18 20:58 Milk Of Magnesia PO HS PRN Constipation Risperidone 1 mg 10/22/18 22:00 Risperdal Tab PO HS JOSE FRANCISCO Sertraline HCl 50 mg 10/22/18 12:30 Zoloft PO DAILY JOSE FRANCISCO Trazodone HCl 100 mg 10/22/18 22:00 Desyrel PO HS JOSE FRANCISCO Past Psychiatric History - Past Psychiatric History Explanation of prior treatment: multiple hospitalizations with partial compliance History of Abuse: denied History of ETOH/Drug Use: hx of alcohol and cocaine use Pertinent Medical Hx (Current Medical&Sleep Prob, Allergies): Allergies Allergy/AdvReac Type Severity Reaction Status Date / Time No Known Allergies Allergy Verified 10/21/18 13:22 Sertraline [Zoloft] 50 mg PO DAILY #30 tab 07/14/18 traZODone [Desyrel] 100 mg PO HS #30 tab 07/14/18 Gabapentin [Neurontin] 300 mg PO TID 10/21/18 Risperidone [Risperdal] 0.5 mg PO HS 10/21/18 Mental Status Examination - Personal Presentation Personal Presentation: Looks older than stated age Additional comments: over weight - Affect Affect: Constricted, Depressed - Motor Activity Motor Activity: Psychomotor Retardation - Reliability in Providing Information Reliability in Providing Information: Fair - Speech Speech: Relevant - Mood Mood: Depressed, Anxious - Formal Thought Process Formal Thought Process: Delusions, Paranoia - Obsessions/Compulsions Obsessions: No Compulsions: No - Cognitive Functions Orientation: Person, Place Sensorium: Alert Attention/Concentration: Easily distracted Abstract Thinking: [place] Judgement: Imparied, as evidence by: Poor judgement - Risk Risk: Suicidal, Diminished functioning - Strength & Assets Inventory Strength & Assets Inventory: Family support - Limitations Additional comments: financial difficulties DSM 5 DX - DSM 5 DSM 5 Diagnosis: schizoaffective disorder depressed alcohol abuse cocaine use in remission - Recommended/Plan of Treatment Treatment Recommendations and Plan of Treatment: pt will be re started on zoloft 50mg daily' neurontin 100mg tid / increase gradually trazodone 100mg qhs risperidone 1mg qhs / increase gradually motivational, group and supportive therapy
--- NOTE | 2018-10-22 15:24 | CARD ---
APPROVED REPORT Date of service: 10/21/2018 EKG Measurement Heart [id number] <Conclusion> Normal sinus rhythm Normal Electrocardiogram
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
--- NOTE | 2018-10-23 14:59 | PCM.PYCHPN ---
Psychiatric Progress Note - Psychiatric Progress Note Patient seen today, length of contact: pt evaluated discussed with team chart reviewed Patient Chief Complaint: I feel like I have no hope Problems Identified/Issues Discussed: pt on evaluation presenting with depressed mood and affect, relates that to his current financial stressors, being unemployed and unsuccessful in finding a job, pt reported poor motivation and low energy, passive suicidal ideation without active plan on the unit ,discussed cross tapering zoloft with wellbutrin, encouraged pt to attend groups, Medical Problems: multiple hospitalizations with partial compliance DSM 5 Symptoms Update: schizoaffective disorder depressed alcohol abuse Medication Change: Yes (start wellbutrin) Medical Record Reviewed: Yes Mental Status Examination - Cognitive Function Orientation: Person, Place Attention: WNL Concentration: Poor Association: WNL Fund of Knowledge: Poor Decription of patient's judgement and insights: partial insight , poor judgment - Mood Mood: Depressed, Anxious - Affect Affect: Constricted, Depressed - Formal Thought Process Formal Thought Process: Delusions, Paranoia - Suicidal Ideation Suicidal Ideation: No - Homicidal Ideation Homicidal Ideation: No Goal/Treatment Plan - Goal/Treatment Plan Need for Continued Stay: Remain at risks for inpatient hospitalization, Discharge may exacerbated symptoms Progress Toward Problem(s) and Goals/Treatment Plan: start wellbutrin 75mg daily, decrease zoloft and discontinue gradually neurontin 100mg tid / increase gradually trazodone 100mg qhs risperidone 1mg qhs / increase gradually motivational, group and supportive therapy
--- NOTE | 2018-10-24 14:44 | PCM.PYCHPN ---
Psychiatric Progress Note - Psychiatric Progress Note Patient seen today, length of contact: pt evaluated discussed with team chart reviewed Patient Chief Complaint: I am less depressed with wellbutrin Problems Identified/Issues Discussed: pt evaluated reported partial mood improvement , and some improvement in energy level with starting wellbutrin, motivational therapy provided in reference to effect of alcohol use on current mental status , encouraged pt to attend groups, pt in agreement to start [facility] outpatient on discharge denied command hallucinations, denied sucidal or homicidal ideation Medical Problems: multiple hospitalizations with partial compliance DSM 5 Symptoms Update: depression alcohol dependence Medication Change: Yes (increase wellbutrin) Medical Record Reviewed: Yes Mental Status Examination - Cognitive Function Orientation: Person, Place Attention: WNL Concentration: WNL Association: WNL Fund of Knowledge: Poor Decription of patient's judgement and insights: partial insight , poor judgment - Mood Mood: Depressed, Anxious - Affect Affect: Constricted, Depressed - Formal Thought Process Formal Thought Process: Delusions, Paranoia - Suicidal Ideation Suicidal Ideation: No - Homicidal Ideation Homicidal Ideation: No Goal/Treatment Plan - Goal/Treatment Plan Need for Continued Stay: Remain at risks for inpatient hospitalization, Discharge may exacerbated symptoms Progress Toward Problem(s) and Goals/Treatment Plan: increase wellbutrin 150mg daily, discontinue zoloft neurontin 100mg tid / increase gradually trazodone 100mg qhs risperidone 1mg qhs / increase gradually motivational, group and supportive therapy
[2018-10-25] MEDS: buPROPion SR 150 MG TABLET PO SCH (09:20)
--- NOTE | 2018-10-25 09:23 | PCM.PYCHPN ---
Psychiatric Progress Note - Psychiatric Progress Note Patient seen today, length of contact: Pt evaluated, chart reviewed Patient Chief Complaint: Depression Problems Identified/Issues Discussed: Patient reports that he feels less depressed and anxious. He reports imp rovement in sleep/appetite. He denies acute AH/VH/SI/HI. He denies adverse effects to medications. Medication Change: No Medical Record Reviewed: Yes Consults ordered or reviewed: Medicine consult Mental Status Examination - Cognitive Function Orientation: Person, Place, Situation, Time Memory: Intact Attention: WNL Concentration: WNL Association: WNL Fund of Knowledge: WN Decription of patient's judgement and insights: Improving I/J - Mood Mood: Anxious - Affect Affect: Constricted - Speech Speech: Appropriate - Formal Thought Process Formal Thought Process: No Impairment Psychotic Thoughts and Behaviors: Denies acute AH/VH/paranoia - Suicidal Ideation Suicidal Ideation: No - Homicidal Ideation Homicidal Ideation: No Goal/Treatment Plan - Goal/Treatment Plan Need for Continued Stay: Remain at risks for inpatient hospitalization, Discharge may exacerbated symptoms Progress Toward Problem(s) and Goals/Treatment Plan: -Continue current medications -Medicine consult -Individual and group therapy -Psychoeducation -Disposition planning
--- NOTE | 2018-10-26 08:27 | PCM.PYCHPN ---
Psychiatric Progress Note - Psychiatric Progress Note Patient seen today, length of contact: Pt evaluated, chart reviewed Patient Chief Complaint: Depression Problems Identified/Issues Discussed: Patient reports that he continues to feel depressed, but feels like he is improving. He continues to report sleep disturbances. He denies acute AH/VH/SI/HI. He denies adverse effects to medications. Medication Change: No Medical Record Reviewed: Yes Consults ordered or reviewed: Medicine consult Mental Status Examination - Cognitive Function Orientation: Person, Place, Situation, Time Memory: Intact Attention: WNL Concentration: WNL Association: WNL Fund of Knowledge: WN Decription of patient's judgement and insights: Improving I/J - Mood Mood: Depressed - Affect Affect: Constricted, Depressed - Speech Speech: Appropriate - Formal Thought Process Formal Thought Process: No Impairment Psychotic Thoughts and Behaviors: Denies acute AH/VH/paranoia - Suicidal Ideation Suicidal Ideation: No - Homicidal Ideation Homicidal Ideation: No Goal/Treatment Plan - Goal/Treatment Plan Need for Continued Stay: Severe depression anxiety, Discharge may exacerbated symptoms Progress Toward Problem(s) and Goals/Treatment Plan: -Continue current medications -Medicine consult -Individual and group therapy -Psychoeducation -Disposition planning
[2018-10-26] MEDS: buPROPion SR 150 MG TABLET PO SCH (09:33)
[2018-10-27] MEDS: buPROPion SR 150 MG TABLET PO SCH (08:53)
--- NOTE | 2018-10-27 13:10 | PCM.PYCHPN ---
Psychiatric Progress Note - Psychiatric Progress Note Patient seen today, length of contact: Pt evaluated, chart reviewed Patient Chief Complaint: I want to get back to a program Problems Identified/Issues Discussed: pt on evaluation reported mood improved with wellbutrin, no reported side effects, stated feeling anxious as his insurance might not allow him to get into a rehab program, discussed with pt possible [facility] pt denied any current perceptual disturbances, denied suicidal or homicidal ideation Medical Problems: multiple hospitalizations with partial compliance DSM 5 Symptoms Update: major depression alcohol abuse Medication Change: No Medical Record Reviewed: Yes Mental Status Examination - Cognitive Function Orientation: Person, Place, Situation, Time Memory: Intact Attention: WNL Concentration: WNL Association: WNL Fund of Knowledge: WNL - Mood Mood: Depressed - Affect Affect: Constricted, Depressed - Speech Speech: Appropriate - Formal Thought Process Formal Thought Process: No Impairment - Suicidal Ideation Suicidal Ideation: No - Homicidal Ideation Homicidal Ideation: No Goal/Treatment Plan - Goal/Treatment Plan Need for Continued Stay: Severe depression anxiety, Discharge may exacerbated symptoms Progress Toward Problem(s) and Goals/Treatment Plan: wellbutrin 150mg daily, neurontin 100mg tid / trazodone 100mg qhs risperidone 1mg qhs / motivational, group and supportive therapy
[2018-10-28] MEDS: buPROPion SR 150 MG TABLET PO SCH (09:01)
--- NOTE | 2018-10-28 14:29 | PCM.PYCHPN ---
Psychiatric Progress Note - Psychiatric Progress Note Patient seen today, length of contact: Pt evaluated, chart reviewed Patient Chief Complaint: I feel better Problems Identified/Issues Discussed: pt on evaluation reported better mood no reported side effects with wellbutrin, improved energy , discussed with pt possible referral to [facility] outpatient program pt denied any current perceptual disturbances, denied suicidal or homicidal ideation Medical Problems: multiple hospitalizations with partial compliance Medication Change: No Medical Record Reviewed: Yes Mental Status Examination - Cognitive Function Orientation: Person, Place, Situation, Time Memory: Intact Attention: WNL Concentration: WNL Association: WNL Fund of Knowledge: WNL - Mood Mood: Depressed - Affect Affect: Constricted, Depressed - Speech Speech: Appropriate - Formal Thought Process Formal Thought Process: No Impairment - Suicidal Ideation Suicidal Ideation: No - Homicidal Ideation Homicidal Ideation: No Goal/Treatment Plan - Goal/Treatment Plan Need for Continued Stay: Severe depression anxiety, Discharge may exacerbated symptoms Progress Toward Problem(s) and Goals/Treatment Plan: wellbutrin 150mg daily, neurontin 100mg tid / trazodone 100mg qhs risperidone 1mg qhs / motivational, group and supportive therapy
[2018-10-28 18:03] VITALS: RESP 20
[2018-10-29] MEDS: buPROPion SR 150 MG TABLET PO SCH (09:35)
[2018-10-29 09:43] VITALS: BP 124/72; PULSE 101; TEMP 96.4
--- NOTE | 2018-10-29 10:02 | PCM.PYCHDC ---
Mental Status Examination - Mental Status Examination Orientation: Person, Place, Situation Memory: Intact Mood: Neutral Speech: Appropriate Attention: WNL Concentration: WNL Association: WNL Fund of Knowledge: WNL Formal Thought Process: No Impairment Description of patient's judgement and insight: partial insight , fair judgment Psychotic Thoughts and Behaviors: pt on discharge denied perceptual disturbances, non elicited Suicidal Ideation: No Current Homicidal Ideation?: No Discharge Summary - Discharge Note Reason for Hospitalization: pt is 27 ys old male with previous psychiatric diagnosis of schizoaffective disorder, alcohol and cocaine abuse, reportedly [facility] but unable to see psychiatrist because of lack of insurance pt has been feeling increasingly depressed due to financial difficulties, being unemployed and being unable to see his son who moved to [place] with his mother pt relapsed on alcohol using beer every day, he reported poor sleep decreased appetite, feeling hopeless and helpless and started having paranoid delusions and delusions of reference feeling that the people in the program are talking about him and targeting him on the unit pt continues to feel hopeless and helpless, passive suicidal ideation without a plan , denied command hallucinations, denied homicidal ideation COLLATERAL FROM PT'S MOTHER REVEALS THAT THE PT HAS BEEN GETTING INCREASINGLY DEPRESSED FOR THE LAST WEEK AND TODAY TOLD HIS MOTHER THAT HE COULD NOT TAKE IT ANYMORE AND JUST WANTED TO . PT'S MOTHER REPORTED THAT HE TOLD HER THAT NOTHING EVER SEEMS TO WORK OUT FOR HIM AND HE IS SO TIRED OF TRYING. SHE REPORTED THAT HE HAS NOT BEEN SLEEPING OR EATING WELL FOR THE PAST WEEK AND THAT HE HAS BEEN VERY SAD AND SHE IS WORRIED THAT HE HAS GIVEN UP ON LIFE. SHE REPORTED THAT SHE STRONGLY ENCOURGAED HIM TO COME TO THE HOSPITAL TO GET HELP. SHE REPORTED THAT HE HAS MANY STRESSORS AT THIS TIME AND THAT HE IS OVERWHELMED. Laboratory Data: Abnormal Lab Results 10/28/18 10/28/18 10/28/18 12:03 16:56 19:47 POC Glucose (mg/dL) 79 87 90 10/29/18 05:53 POC Glucose (mg/dL) 94 Consultations:: List each consultation separately and include: 1. Reason for request. 2. Findings. 3. Follow-up Summary of Hospital Course include:: 1. Description of specific treatment plan utilized for patients during their course of treatmen. 2. Summarize the time- course for resolution of acute symptoms and/or regressed behaviors. 3. Describe issues identified and worked on during hospitalization. 4. Describe medication utilized. 5. Describe medical problems identified and treated. 6. Reassessment of suicide risk Summary of Hospital Course: pt ON ADMISSION PRESENTED WITH DEPRESSED MOOD, LABILE AFFECT PT WAS PLACED ON RISPERIDONE, WELLBUTRIN AND NEURONTIN MOTIVATIONAL THERAPY, CBT AND GROUP THERAPY PROVIDED PT WAS COMPLIANT WITH TREATMENT , NO REPORTED SIDE EFFECTS PT WAS REFERRED BY [facility] TO [facility] OUTPATIENT TREATMENT ON DISCHARGE MENTAL STATUS WAS STABLE PT DENIED ANY CURRENT SUICIDAL OR HOMICIDAL IDEATION DENIED PERCEPTUAL DISTURBANCES - Diagnosis (1) Major depressive disorder Current Visit: Yes Status: Acute (2) Alcohol abuse Current Visit: No Status: Acute - Final Diagnosis (DSM 5) Condition upon Discharge: STABLE DSM 5: bipolar I disorder ALCOHOL ABUSE Disposition: HOME/ ROUTINE Follow-up Treatment Plan: wellbutrin 150mg daily, neurontin 100mg tid / trazodone 100mg qhs risperidone 1mg qhs / motivational, group and supportive therapy Prescriptions/Medication Reconciliation: Atorvastatin [Lipitor] 40 mg PO HS 30 Days #30 tab buPROPion SR [Wellbutrin SR 150 MG] 150 mg PO DAILY 30 Days #30 tab Gabapentin [Neurontin] 100 mg PO TID 30 Days #90 cap metFORMIN [glucOPHAGE] 500 mg PO Q12 30 Days #60 tab risperiDONE [RisperDAL Tab] 1 mg PO HS 30 Days #30 tab traZODone [Desyrel] 100 mg PO HS 30 Days #30 tab - Antipsychotic Medications Pt discharged on 2 or more routine antipsychotic medications: No
== END 2018-10-29 12:43 | disposition home or self-care (01) | DRG 750 ==
LOC: H.ER 13:19 → H.ERHOLD 20:00 → H.PSYCH 20:53
PROVIDERS: ADMIT Psychiatry & Neurology Psychiatry; ATTEND Psychiatry & Neurology Psychiatry
PROC: GZ51ZZZ Individual Psychotherapy, Behavioral (ICD-10-PCS; 2018-10-22)
PROC: GZ56ZZZ Individual Psychotherapy, Supportive (ICD-10-PCS; 2018-10-22)
PROC: GZHZZZZ Group Psychotherapy (ICD-10-PCS; principal; 2018-10-24)
DX: F25.1 Schizoaffective disorder, depressive type (principal); R45.851 Suicidal ideations; E11.9 Type 2 diabetes mellitus without complications; F31.9 Bipolar disorder, unspecified; I10 Essential (primary) hypertension; Z79.899 Other long term (current) drug therapy; Z83.3 Family history of diabetes mellitus; Z87.891 Personal history of nicotine dependence; F14.10 Cocaine abuse, uncomplicated; F41.9 Anxiety disorder, unspecified; G47.9 Sleep disorder, unspecified; R51 Headache; E78.5 Hyperlipidemia, unspecified; F10.20 Alcohol dependence, uncomplicated; F14.11 Cocaine abuse, in remission

== ENCOUNTER 2018-11-19 12:55 | Inpatient (IN) | payer MEDICAID, SELFPAY ==
[2018-11-19 12:56] VITALS: BMI 41.4
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
[2018-11-19 15:07] LABS: BASO # 0.1 K/uL (0.0-0.2); BASO % 0.7 % (0.0-2.0); EOS # 0.1 K/uL (0.0-0.7); HEMOGLOBIN 13.4 g/dL (12.0-18.0); LYMPH # 3.8 K/uL (1.0-4.3); LYMPH % 26.1 % (20.0-40.0); MEAN CELL VOLUME 87.3 fl (80.0-94.0); MEAN CORPUSCULAR HEMOGLOBIN 28.7 pg (27.0-31.0); MEAN CORPUSCULAR HGB CONC 32.8 g/dL (33.0-37.0); MEAN PLATELET VOLUME 7.1 fl (7.2-11.7); MONO # 1.2 K/uL (0.0-0.8); NEUT # 9.3 K/uL (1.8-7.0); NEUT % 64.2 % (50.0-75.0); NRBC % 0.1 % (0.0-0.0); RBC 4.66 Mil/uL (4.40-5.90); RED CELL DISTRIBUTION WIDTH 13.2 % (11.5-14.5); WHITE BLOOD COUNT 14.5 K/uL (4.8-10.8)
[2018-11-19 15:12] LABS: ACETAMINOPHEN < 10.0 ug/ml (10.0-30.0); BLOOD UREA NITROGEN 11 mg/dl (9-20); CALCIUM 9.8 mg/dL (8.4-10.2); GFR NON-AFRICAN AMERICAN > 60; SALICYLATE < 1.0 mg/dl
[2018-11-19 15:17] LABS: SQUAMOUS EPITHIAL < 1 /hpf (0-5); URINE BILIRUBIN NEGATIVE (NEGATIVE); URINE BLOOD NEGATIVE (NEGATIVE); URINE CLARITY CLEAR (Clear); URINE COLOR STRAW (YELLOW); URINE GLUCOSE (UA) NEG (NEGATIVE); URINE LEUKOCYTE ESTERASE NEG Leu/uL (Negative); URINE PROTEIN NEGATIVE (NEGATIVE); URINE UROBILINOGEN 0.2-1.0 mg/dL (0.2-1.0)
[2018-11-19 15:32] LABS: BARBITURATES, UR NEGATIVE (NEGATIVE); BENZODIAZEPINES, UR NEGATIVE (NEGATIVE); OPIATES, UR NEGATIVE (NEGATIVE); PHENCYCLIDINE, UR NEGATIVE (NEGATIVE)
--- NOTE | 2018-11-19 16:58 | ED PDOC ---
- Laboratory Results Result Diagrams: 11/19/18 14:45 11/19/18 14:45 Lab Results: Urine Color Straw (YELLOW) 11/19/18 14:45 Urine Clarity Clear (Clear) 11/19/18 14:45 Urine pH 7.0 (5.0-8.0) 11/19/18 14:45 Ur Specific [place] < 1.005 (1.003-1.030) 11/19/18 14:45 Urine Protein Negative mg/dL (NEGATIVE) 11/19/18 14:45 Urine Glucose (UA) Neg mg/dL (NEGATIVE) 11/19/18 14:45 Urine Ketones Negative mg/dL (NEGATIVE) 11/19/18 14:45 Urine Blood Negative (NEGATIVE) 11/19/18 14:45 Urine Nitrate Negative (NEGATIVE) 11/19/18 14:45 Urine Bilirubin Negative (NEGATIVE) 11/19/18 14:45 Urine Urobilinogen 0.2-1.0 mg/dL (0.2-1.0) 11/19/18 14:45 Ur Leukocyte Esterase Neg Jazmine/uL (Negative) 11/19/18 14:45 Urine RBC (Auto) 1 /hpf (0-3) 11/19/18 14:45 Urine Microscopic WBC < 1 /hpf (0-5) 11/19/18 14:45 Ur Squamous Epith Cells < 1 /hpf (0-5) 11/19/18 14:45 - ECG O2 Sat by Pulse Oximetry: 97 (RA) Medical Decision Making Medical Decision Making: Medically stable for psychiatric admission Disposition - Clinical Impression Clinical Impression: Schizoaffective disorder - POA Present On Arrival: None - Disposition Disposition: Admitted as In-Patient Disposition Time: 16:58 Condition: FAIR Forms: [facility] (Filipino)
--- NOTE | 2018-11-19 17:39 | RAD ---
Date of service: 11/19/2018 HISTORY: cough COMPARISON: 10/21/2018 TECHNIQUE: 1 view obtained. Projections simulates apical lordotic FINDINGS: LUNGS: No active pulmonary disease. PLEURA: No significant pleural effusion identified, no pneumothorax apparent. CARDIOVASCULAR: No aortic atherosclerotic calcification present. Normal cardiac size. No pulmonary vascular congestion. OSSEOUS STRUCTURES: No significant abnormalities. VISUALIZED UPPER ABDOMEN: Normal. OTHER FINDINGS: None. IMPRESSION: No active disease.
[2018-11-19 20:47] VITALS: O2SAT 98
[2018-11-19] MEDS ORDERED: DiphenhydrAMINE 50 mg/ml Inj IM PRN (20:55)
[2018-11-19] MEDS ORDERED: Alum-Mag Hydrox-Simethicone Susp (30 mL) PO PRN (20:55)
[2018-11-19] MEDS ORDERED: Magnesium Hydroxide Susp 30 ml UD PO PRN (20:55)
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
[2018-11-20] MEDS ORDERED: Pneumococcal 23-Valent Vaccine IM ONE (06:00)
[2018-11-20] MEDS: buPROPion SR 150 MG TABLET PO SCH (08:26)
--- NOTE | 2018-11-20 11:21 | CARD ---
APPROVED REPORT Date of service: 11/19/2018 EKG Measurement Heart [id number] <Conclusion> Normal sinus rhythm Minimal voltage criteria for LVH, may be normal variant Borderline ECG
--- NOTE | 2018-11-20 14:22 | PCM.PSYCH ---
Initial Psychiatric Evaluation - Initial Psychiatric Evaluation Chief Complaint (in patient's own words): I am confused and paranoid History of Present Illness and Precipitating Events: pt is 27 ys old male with previous diagnosis of schizoaffective disorder and alcohol abuse, partially compliant with medication presented to ER due to passive suicidal ideation and increased paranoid delusions pt multiple stressors including his immigration status, currently unemployed and inability to see his child , pt reported feeling increasingly depressed, with decreased sleep, low energy anhedonia, he also started to have paranoid delusions feeling that other people are after him and talking about him on the day he presented to ER he started experiencing passive suicidal ideation Current Medications: Active Medications Generic Name Dose Route Start Last Admin Trade Name Freq PRN Reason Stop Dose Admin Acetaminophen 650 mg 11/19/18 20:55 Tylenol 325mg Tab PO Q4 PRN pain level 4-7 Al Hydrox/Mg Hydrox/Simethicone 30 ml 11/19/18 20:55 Maalox Plus 30 Ml PO Q4 PRN Dyspepsia Atorvastatin Calcium 40 mg 11/19/18 22:00 11/20/18 05:44 Lipitor PO Not Given HS JOSE FRANCISCO Bupropion HCl 150 mg 11/20/18 09:00 11/20/18 08:26 Wellbutrin Sr 150 Mg PO 150 mg DAILY JOSE FRANCISCO Administration Diphenhydramine HCl 50 mg 11/19/18 20:55 Benadryl IM Q6 PRN Extrapyramidal S/S Unable PO Diphenhydramine HCl 50 mg 11/19/18 20:55 Benadryl PO Q6 PRN Extrapyramidal Symptoms Diphenhydramine HCl 50 mg 11/19/18 20:59 Benadryl PO HS PRN Sleep Gabapentin 100 mg 11/20/18 09:00 11/20/18 08:26 Neurontin PO 100 mg TID JOSE FRANCISCO Administration Haloperidol 5 mg 11/19/18 20:55 Haldol PO Q4 PRN Agitation Haloperidol Lactate 5 mg 11/19/18 20:55 Haldol IM Q4 PRN Agitation, Unable to Take PO Lorazepam 2 mg 11/19/18 20:55 Ativan IM Q8H PRN Anxiety/Agitation,Unable PO Lorazepam 2 mg 11/19/18 20:55 Ativan PO Q8H PRN Anxiety/Agitation Magnesium Hydroxide 30 ml 11/19/18 20:55 Milk Of Magnesia PO HS PRN Constipation Metformin HCl 500 mg 11/20/18 09:00 11/20/18 08:26 Glucophage PO 500 mg Q12 JOSE FRANCISCO Administration Risperidone 2 mg 11/20/18 22:00 Risperdal Tab PO HS JOSE FRANCISCO Past Psychiatric History - Past Psychiatric History Explanation of prior treatment: multiple hospiatlizations , partial compliance History of ETOH/Drug Use: history of alcohol abuse in early remission Pertinent Medical Hx (Current Medical&Sleep Prob, Allergies): Allergies Allergy/AdvReac Type Severity Reaction Status Date / Time No Known Allergies Allergy Verified 10/21/18 13:22 Atorvastatin [Lipitor] 40 mg PO HS 30 Days #30 tab 10/28/18 Gabapentin [Neurontin] 100 mg PO TID 30 Days #90 cap 10/28/18 buPROPion SR [Wellbutrin SR 150 MG] 150 mg PO DAILY 30 Days #30 tab 10/28/18 metFORMIN [glucOPHAGE] 500 mg PO Q12 30 Days #60 tab 10/28/18 risperiDONE [RisperDAL Tab] 1 mg PO HS 30 Days #30 tab 10/28/18 traZODone [Desyrel] 100 mg PO HS 30 Days #30 tab 10/28/18 Mental Status Examination - Personal Presentation Personal Presentation: Looks older than stated age - Affect Affect: Constricted, Depressed - Motor Activity Motor Activity: Psychomotor Retardation - Reliability in Providing Information Reliability in Providing Information: Fair - Speech Speech: Relevant - Mood Mood: Depressed, Anxious - Formal Thought Process Formal Thought Process: Paranoia, Circumstantial - Obsessions/Compulsions Obsessions: No Compulsions: No - Cognitive Functions Orientation: Person, Place Sensorium: Alert Abstract Thinking: Hyrum Judgement: Imparied, as evidence by: Poor judgement, Imparied, as evidence by: Lack of insight into illness - Risk Risk: Suicidal, Diminished functioning - Strength & Assets Inventory Strength & Assets Inventory: Life experience - Limitations Additional comments: partial compliance DSM 5 DX - DSM 5 DSM 5 Diagnosis: schizoaffective disorder bipolar type alcohol abuse in early remission - Recommended/Plan of Treatment Treatment Recommendations and Plan of Treatment: start wellbutrin 150mg po daily neurontin 100mg tid risperidone 2mg qhs cbt group and supportive therapy internal medicine consult
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
[2018-11-21 09:15] LABS: BASO # 0.1 K/uL (0.0-0.2); EOS # 0.2 K/uL (0.0-0.7); EOS % 1.3 % (0.0-4.0); HEMOGLOBIN 14.6 g/dL (12.0-18.0); LYMPH # 3.6 K/uL (1.0-4.3); LYMPH % 29.6 % (20.0-40.0); MEAN CELL VOLUME 88.1 fl (80.0-94.0); MEAN CORPUSCULAR HEMOGLOBIN 29.1 pg (27.0-31.0); MEAN CORPUSCULAR HGB CONC 33.1 g/dL (33.0-37.0); MEAN PLATELET VOLUME 7.3 fl (7.2-11.7); MONO # 1.1 K/uL (0.0-0.8); MONO % 8.9 % (0.0-10.0); NEUT # 7.1 K/uL (1.8-7.0); NEUT % 59.2 % (50.0-75.0); RBC 5.01 Mil/uL (4.40-5.90); RED CELL DISTRIBUTION WIDTH 13.3 % (11.5-14.5)
[2018-11-21] MEDS: buPROPion SR 150 MG TABLET PO SCH (09:37)
--- NOTE | 2018-11-21 17:32 | PCM.PYCHPN ---
Psychiatric Progress Note - Psychiatric Progress Note Patient seen today, length of contact: chart reviewed case discussed with team Patient Chief Complaint: pt reports was feeling depressed not knowing what to do came to hospital reports in past used to drink and use drugs cannot give any further detail. pt report pt has been adherent with rx. somewhat isolative. Problems Identified/Issues Discussed: alteration in mood alteration in cognition alteration in self care Medical Problems: alteration in mood alteration in safety alteration in coping Diagnostic Results: per psychiatry per medicine per nursing per vp digital marketing social media and crm per recreational therapy DSM 5 Symptoms Update: depressed mood suicidal ideations no plan contracts for safety Medication Change: No Medical Record Reviewed: Yes Consults ordered or reviewed: pt seen by medical team Mental Status Examination - Cognitive Function Orientation: Person, Place Attention: Poor Concentration: Poor Association: Loose Fund of Knowledge: Poor Decription of patient's judgement and insights: impaired - Mood Mood: Depressed, Anxious - Affect Affect: Constricted, Depressed - Formal Thought Process Formal Thought Process: Paranoia, Circumstantial - Homicidal Ideation Homicidal Ideation: No Goal/Treatment Plan - Goal/Treatment Plan Progress Toward Problem(s) and Goals/Treatment Plan: inpt milieu vital signs and clinical observation per protocol and per clinical status adjust meds per clinical status discharge planning in progress Estimated Date of D/C: 11/28/18 - Smoking Cessation Smoking Cessation Initiated: No Reason for not providing: defers
--- NOTE | 2018-11-22 08:31 | PCM.PYCHPN ---
Psychiatric Progress Note - Psychiatric Progress Note Patient seen today, length of contact: Pt evaluated, case discussed w/ team, chart reviewed Patient Chief Complaint: Depression/paranoia Problems Identified/Issues Discussed: Patient continues to report feeling depressed w/ sleep/appetite disturbances. He also reports seeing shadows at night and does not know what they are. He also reports vague paranoia that someone may try to harm him. He denies current adverse effects to medications. NO SI/HI. Medication Change: Yes (Increase Risperdal) Medical Record Reviewed: Yes Consults ordered or reviewed: Medicine consult Mental Status Examination - Cognitive Function Orientation: Person, Place, Situation, Time Decription of patient's judgement and insights: Poor I/J - Mood Mood: Depressed, Anxious - Affect Affect: Constricted, Depressed - Formal Thought Process Formal Thought Process: Paranoia, Circumstantial Psychotic Thoughts and Behaviors: +Paranoia; +VH of shadows at night - Suicidal Ideation Suicidal Ideation: No - Homicidal Ideation Homicidal Ideation: No Goal/Treatment Plan - Goal/Treatment Plan Need for Continued Stay: Remain at risks for inpatient hospitalization, Discharge may exacerbated symptoms Progress Toward Problem(s) and Goals/Treatment Plan: Schizoaffective Disorder -Increase Risperdal -Continue Wellbutrin -Individual and group therapy -Medicine consult -Psychoeducation -Disposition planning
[2018-11-22] MEDS: buPROPion SR 150 MG TABLET PO SCH (08:53)
[2018-11-23] MEDS: buPROPion SR 150 MG TABLET PO SCH (08:58)
--- NOTE | 2018-11-23 11:08 | PCM.PYCHPN ---
Psychiatric Progress Note - Psychiatric Progress Note Patient seen today, length of contact: Pt evaluated, case discussed w/ team, chart reviewed Patient Chief Complaint: "I'm feeling better." Problems Identified/Issues Discussed: Patient reports that his mood is improving. He is more goal oriented. He denies acute AH/VH/paranoia/SI/HI. He denies current adverse effects to medications. Medication Change: No Medical Record Reviewed: Yes Consults ordered or reviewed: Medicine consult Mental Status Examination - Cognitive Function Orientation: Person, Place, Situation, Time Decription of patient's judgement and insights: Poor I/J - Mood Mood: Anxious - Affect Affect: Constricted - Formal Thought Process Formal Thought Process: Circumstantial Psychotic Thoughts and Behaviors: Denies acute AH/VH/paranoia - Suicidal Ideation Suicidal Ideation: No - Homicidal Ideation Homicidal Ideation: No Goal/Treatment Plan - Goal/Treatment Plan Need for Continued Stay: Discharge may exacerbated symptoms Progress Toward Problem(s) and Goals/Treatment Plan: Schizoaffective Disorder -Continue Risperdal -Continue Wellbutrin -Individual and group therapy -Medicine consult -Psychoeducation -Disposition planning
[2018-11-24 05:28] VITALS: BP 130/83; PULSE 76; RESP 19; TEMP 98.1
--- NOTE | 2018-11-24 08:31 | PCM.PYCHDC ---
Mental Status Examination - Mental Status Examination Orientation: Person, Place, Situation, Time Memory: Intact Mood: Neutral Affect: Broad Speech: Appropriate Attention: WNL Concentration: WNL Association: WNL Fund of Knowledge: WNL Formal Thought Process: No Impairment Description of patient's judgement and insight: Fair I/J Psychotic Thoughts and Behaviors: No AH/VH/paranoia/delusions Suicidal Ideation: No Current Homicidal Ideation?: No Discharge Summary - Discharge Note Reason for Hospitalization: As per initial HPI: pt is 27 ys old male with previous diagnosis of schizoaffective disorder and alcohol abuse, partially compliant with medication presented to ER due to passive suicidal ideation and increased paranoid delusions pt multiple stressors including his immigration status, currently unemployed and inability to see his child , pt reported feeling increasingly depressed, with decreased sleep, low energy anhedonia, he also started to have paranoid delusions feeling that other people are after him and talking about him on the day he presented to ER he started experiencing passive suicidal ideation Consultations:: List each consultation separately and include: 1. Reason for request. 2. Findings. 3. Follow-up Consultations: Medicine consult Summary of Hospital Course include:: 1. Description of specific treatment plan utilized for patients during their course of treatmen. 2. Summarize the time- course for resolution of acute symptoms and/or regressed behaviors. 3. Describe issues identified and worked on during hospitalization. 4. Describe medication utilized. 5. Describe medical problems identified and treated. 6. Reassessment of suicide risk Summary of Hospital Course: Patient was admitted to the psychiatry unit. Individual and group therapy were provided. Patient was stabilized on Wellbutrin SR 150 mg PO Daily, Gabapentin 100 mg PO TID, and Risperdal 3 mg PO HS. He denies acute depression/anxiety/AH/VH/paranoia/delusions. He submitted a 48 hr letter requesting to be discharged and will be discharged as he does not meet criteria for involuntary commitment at this time. Psychoeducation provided on the dangers of ETOH abuse and the importance of compliance with treatment and medications. - Final Diagnosis (DSM 5) Condition upon Discharge: STABLE DSM 5: Schizoaffective Disorder Disposition: HOME/ ROUTINE Follow-up Treatment Plan: Schizoaffective Disorder -Continue current medications -Discharge with outpatient follow-up Prescriptions/Medication Reconciliation: Atorvastatin [Lipitor] 40 mg PO HS 30 Days #30 tab buPROPion SR [Wellbutrin SR 150 MG] 150 mg PO DAILY 30 Days #30 tab Gabapentin [Neurontin] 100 mg PO TID 30 Days #90 cap metFORMIN [glucOPHAGE] 500 mg PO Q12 30 Days #60 tab risperiDONE [RisperDAL Tab] 3 mg PO HS #30 tab - Smoking Cessation Smoking Cessation Medication prescribed: No Reason for not providing: Not indicated - Antipsychotic Medications Pt discharged on 2 or more routine antipsychotic medications: No
[2018-11-24] MEDS: buPROPion SR 150 MG TABLET PO SCH (08:48)
== END 2018-11-24 13:00 | disposition home or self-care (01) | DRG 750 ==
LOC: H.ER 12:55 → H.ERHOLD 16:59 → H.PSYCH 20:51 → H.STEP 11-23 17:37
PROVIDERS: ADMIT Psychiatry & Neurology Psychiatry; ATTEND Psychiatry & Neurology Psychiatry
PROC: GZHZZZZ Group Psychotherapy (ICD-10-PCS; principal; 2018-11-19)
PROC: GZ58ZZZ Individual Psychotherapy, Cognitive-Behavioral (ICD-10-PCS; 2018-11-19)
PROC: 3E0234Z Introduction of Serum, Toxoid and Vaccine into Muscle, Percutaneous Approach (ICD-10-PCS; 2018-11-20)
DX: F25.0 Schizoaffective disorder, bipolar type (principal); R45.851 Suicidal ideations; F10.11 Alcohol abuse, in remission; F41.9 Anxiety disorder, unspecified; E11.9 Type 2 diabetes mellitus without complications; I10 Essential (primary) hypertension; Z23 Encounter for immunization; F17.200 Nicotine dependence, unspecified, uncomplicated; Z79.84 Long term (current) use of oral hypoglycemic drugs